=== PATIENT | male | born 1960 | race American Indian/Alaskan Native ===

== ENCOUNTER 2018-01-19 17:22 | Inpatient (IN) | payer OTHER ==
--- NOTE | 2018-01-19 18:20 | C.PDOC ---
History Of Present Illness 57 y/o male pt with hx of HTN presents to the ER requesting detox for heroin and cocain. Pt last intake was this morning at 7 am. Pt denies chest pain, SOB, hematuria, dysuria, melena, headache, abdominal pain, SI/HI, fever, chills and diarrhea. Time Seen by Provider: 01/19/18 17:51 Chief Complaint (Nursing): Substance Abuse History Per: Patient History/Exam Limitations: no limitations Onset/Duration Of Symptoms: Hrs Current Symptoms Are (Timing): Still Present Modifying Factor(s): Narcotics (heroin), Cocaine Past Medical History Reviewed: Historical Data, Nursing Documentation, Vital Signs Vital Signs: Last Vital Signs Temp 98.6 F 01/19/18 17:42 Pulse 65 01/19/18 17:42 Resp 18 01/19/18 17:42 BP 121/80 01/19/18 17:42 Pulse Ox 96 01/19/18 17:42 - Medical History PMH: HTN Family History: States: No Known Family Hx - Social History Hx Alcohol Use: Yes Hx Substance Use: Yes - Immunization History Hx Tetanus Toxoid Vaccination: No Hx Influenza Vaccination: No Hx Pneumococcal Vaccination: No Review Of Systems Constitutional: Positive for: Other (requestig detox for cocain and heroin). Negative for: Fever, Chills Cardiovascular: Negative for: Chest Pain Respiratory: Negative for: Shortness of Breath Gastrointestinal: Negative for: Abdominal Pain, Diarrhea, Melena, Hematemesis, Other (dysuria) Neurological: Negative for: Headache Psych: Negative for: Suicidal ideation, Other (homicidal ideation) Physical Exam - Physical Exam Appears: Non-toxic, No Acute Distress Skin: Warm, Dry Head: Normacephalic Eye(s): bilateral: Normal Inspection, PERRL, EOMI Ear(s): Bilateral: Normal Oral Mucosa: Moist Throat: Normal Neck: Normal ROM, Supple, Other (no meningeal signs) Chest: Symmetrical, No Deformity Cardiovascular: Rhythm Regular, No Friction Rub Respiratory: Normal Breath Sounds, No Rales, No Rhonchi, No Wheezing Gastrointestinal/Abdominal: Soft, No Tenderness Back: No CVA Tenderness Extremity: Normal ROM (x4) Extremity: Bilateral: Atraumatic Pulses: Left Dorsalis Pedis: Normal, Right Dorsalis Pedis: Normal Neurological/Psych: Oriented x3, Normal Speech, Normal Cognition, Normal Cranial Nerves, No Cerebellar Signs, Normal Motor, Normal Sensation, Normal Reflexes Gait: Steady Extremity: Right: No Drift, Left: No Drift, Upper: No Drift, Lower: No Drift ED Course And Treatment - Laboratory Results Result Diagrams: 01/19/18 18:45 01/19/18 18:45 ECG: Interpreted By Me, Viewed By Me ECG Rhythm: Sinus Bradycardia ECG Interpretation: No Acute Changes Interpretation Of ECG: no stemi Rate From EC O2 Sat by Pulse Oximetry: 96 (RA) Pulse Ox Interpretation: Normal Medical Decision Making Medical Decision Making: Impression: request detox for heroin and cocaine. No CP Fever or sob. No cough or congestion or rash. No track kauffman. No meningeal signs. No GI or complaints. Pending medical clearance. plans: -- EKG -- chem labs -- blood work -- UA Reassess: Pt is resting comfortably. Crisis will further evaluate pt and will be placed on a detox bed labs largely unremarkable medically clear to Dr. Cassidy per crisis pt in nad with vss. Disposition - Disposition Disposition Time: 20:06 Condition: GOOD - Clinical Impression Clinical Impression: Drug abuse - Scribe Statement The provider has reviewed the documentation as recorded by the Ene Blackmon Do Provider Attestation: All medical record entries made by the Scribe were at my direction and personally dictated by me. I have reviewed the chart and agree that the record accurately reflects my personal performance of the history, physical exam, medical decision making, and the department course for this patient. I have also personally directed, reviewed, and agree with the discharge instructions and disposition.
[2018-01-19 18:48] LABS: BASO # 0.1 K/uL (0.0-0.2); BASO % 1.3 % (0.0-2.0); EOS # 0.3 K/uL (0.0-0.7); EOS % 7.3 % (0.0-4.0); HEMOGLOBIN 13.3 g/dL (12.0-18.0); LYMPH # 1.7 K/uL (1.0-4.3); LYMPH % 39.3 % (20.0-40.0); MEAN CELL VOLUME 87.6 fL (80.0-94.0); MEAN CORPUSCULAR HEMOGLOBIN 29.5 pg (27.0-31.0); MEAN CORPUSCULAR HGB CONC 33.7 g/dL (33.0-37.0); MEAN PLATELET VOLUME 6.4 fL (7.2-11.7); MONO # 0.4 K/uL (0.0-0.8); NEUT % 44.1 % (50.0-75.0); NRBC % 0.1 % (0.0-2.0); RBC 4.53 Mil/uL (4.40-5.90); RED CELL DISTRIBUTION WIDTH 14.2 % (11.5-14.5); WHITE BLOOD COUNT 4.4 K/uL (4.8-10.8)
[2018-01-19 18:52] LABS: SQUAMOUS EPITHIAL < 1 /hpf (0-5); URINE BACTERIA OCC (<OCC); URINE BILIRUBIN NEGATIVE (NEGATIVE); URINE BLOOD NEGATIVE (NEGATIVE); URINE CLARITY Clear (Clear); URINE COLOR Yellow (YELLOW); URINE GLUCOSE (UA) NORMAL (Normal); URINE LEUKOCYTE ESTERASE TRACE Leu/uL (Negative); URINE PROTEIN NEGATIVE (NEGATIVE); URINE UROBILINOGEN NORMAL mg/dL (0.2-1.0)
[2018-01-19 19:00] LABS: ACETAMINOPHEN < 10.0 ug/mL (10.0-30.0); SALICYLATE < 1.0 mg/dL 1
[2018-01-19 19:02] LABS: ALB/GLOB RATIO 1.3 (1.0-2.1); ALBUMIN 4.2 g/dL (3.5-5.0); ALT/SGPT 31 U/L (21-72); AST/SGOT 23 U/L (17-59); BLOOD UREA NITROGEN 13 mg/dL (9-20); CALCIUM 9.3 mg/dl (8.6-10.4); GFR NON-AFRICAN AMERICAN > 60
[2018-01-19 19:05] LABS: BARBITURATES, UR NEGATIVE (NEGATIVE); BENZODIAZEPINES, UR NEGATIVE (NEGATIVE); PHENCYCLIDINE, UR NEGATIVE (NEGATIVE)
[2018-01-19 19:09] LABS: OPIATES, UR POSITIVE (NEGATIVE)
--- NOTE | 2018-01-19 20:18 | PCM.BM ---
<Zena Flores - Last Filed: 01/19/18 20:16> Treatment Plan Problems - Problems identified on initial assessmt potiential for opiate withdrawal Date Initiated: 01/19/18 Time Initiated: 20:17 Assessment reference: NA Status: Active Treatment assets and liabiliti Patient Assests: good support system, cognitively intact Patient Liabilities: substance abuse, medical problems - Milieu Protocol Maintain good personal hygiene: daily Encourage regular showers, daily Remind patient to perform daily oral care, daily Assist patient to perform ADL's Maintain personal safety: every shift Educate patient to report safety concerns to staff, every shift Monitor environment for contraband/sharps Medication safety: Monitor for expected outcome, potential side effects: every shift, Assess barriers to learning: every shift, Assess readiness for medication education: every shift <Thong Mercedes - Last Filed: 01/20/18 09:48> - Diagnosis (1) Opioid use disorder, severe, dependence Status: Acute Interventions: 01/20/18 09:48 * Assess 7x/week regarding severity of withdrawal * Educate regarding risks, benefits, side effects and alternatives of medications * Use Motivational Interviewing for abstinence * Use CBT for relapse prevention * Medication management for withdrawal symptoms * Encourage medication assisted treatment * (2) Cocaine use disorder, severe, dependence Status: Acute Interventions: 01/20/18 09:48 * Assess 7x/week regarding severity of withdrawal * Educate regarding risks, benefits, side effects and alternatives of medications * Use Motivational Interviewing for abstinence * Use CBT for relapse prevention * Medication management for withdrawal symptoms * Encourage medication assisted treatment * <Toña Gay - Last Filed: 01/20/18 14:42> Family Contact Family involvement: No known Family/SO - Goals for Treatment Patient goals for treatment: COMPLETE DETOX AND RESUME O/P @ AGENCY WITH MEDICATION MANAGEMENT. Discharge/Continuing Care - Education Needs Education Needs: Patient Medication, Patient Diagnosis/Disease Process, Patient Coping Skills, Patient Anger Management skills, Patient Placement options, Patient Community resources - Discharge Discharge Criteria: No longer exhibiting s/s of withdrawal, Reduction of target symptoms Discharge to:: Home - Treatment Team Participation Patient/Family/SO Statement: 01/20/18 14:41 "I NEED TO GO BACK TO MY PROGRAM AND STAY ON MY MEDS..." Discussed with Family/SO: No Was Patient/Family/SO present at Treatment Team Meeting: Yes
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
[2018-01-20] MEDS ORDERED: Aluminum Hydroxide/Magnesium Hydroxide Susp (30 mL) PO PRN (09:53)
--- NOTE | 2018-01-20 21:17 | CARD ---
APPROVED REPORT Date of service: 01/19/2018 EKG Measurement Heart [id number] <Conclusion> Sinus bradycardia Nonspecific T wave abnormality Abnormal ECG
--- NOTE | 2018-01-21 09:53 | PCM.PYCHPN ---
Psychiatric Progress Note - Psychiatric Progress Note Patient seen today, length of contact: 15 min Patient Chief Complaint: I am still withdrawing.' Problems Identified/Issues Discussed: Patient seen and evaluated, chart reviewed and discussed with the nurse. He reports improvement in his mood and withdrawal symptoms. He denies any AVH or any paranoia. Patient is compliant with medications and denies any side effects. Symptoms are improving but need more time to stabilize. Support and psychoeducation given. Medication Change: Yes Medical Record Reviewed: Yes Mental Status Examination - Cognitive Function Orientation: Person, Place, Situation, Time Memory: Intact Attention: WNL Concentration: Poor Association: WNL Fund of Knowledge: Poor - Mood Mood: Anxious, Other (irate at times) - Affect Affect: Constricted - Speech Speech: Soft - Formal Thought Process Formal Thought Process: No Impairment - Suicidal Ideation Suicidal Ideation: No - Homicidal Ideation Homicidal Ideation: No Goal/Treatment Plan - Goal/Treatment Plan Need for Continued Stay: Severe depression anxiety, Severe functional impairment Progress Toward Problem(s) and Goals/Treatment Plan: Opioid withdrawal Opioid use d/o, severe Cocaine use d/o, severe Tobacco use d/o moderate Bipolar 1 d/o - hypomanic Taper with methadone Gabapentin for augmentation if needed Seroquel 400 mg HS As needed medications All risks, benefits and alternatives of the meds discussed, and the pt agreed and understood. Attend groups and activities Supportive therapy and psychoeducation MA for abstinence CBT for relapse prevention Encourage MAT Refer to rehab or IOP, and self-help groups Teach healthy lifestyle methods, i.e. diet, exercise, meditation Smoking cessation with MA Nicotine patch if needed
--- NOTE | 2018-01-22 08:57 | RAD ---
Date of service: 01/22/2018 HISTORY: rehab placement COMPARISON: No prior. TECHNIQUE: Chest PA and lateral FINDINGS: LUNGS: No infiltrates bilaterally. Large air cyst right apex. Linear atelectasis or fibrosis in the mid to inferior right lung zone. PLEURA: No significant pleural effusion identified. No pneumothorax apparent. CARDIOVASCULAR: No aortic atherosclerotic calcification present. Normal cardiac size. No pulmonary vascular congestion. OSSEOUS STRUCTURES: No significant abnormalities. VISUALIZED UPPER ABDOMEN: Normal. OTHER FINDINGS: None. IMPRESSION: Large air cyst right apex. No infiltrate, pleural effusion or pneumothorax identified. No acute cardiovascular changes.
[2018-01-22 13:36] VITALS: RESP 18
--- NOTE | 2018-01-23 12:36 | PCM.PYCHPN ---
Psychiatric Progress Note - Psychiatric Progress Note Patient seen today, length of contact: 15 min Patient Chief Complaint: "I am getting better" Problems Identified/Issues Discussed: The pt is seen, chart reviewed, case discussed with staff. The pt is compliant with medications and reports no side-effects. Symptoms are improving but needs more time to stabilize. Pt attends groups and activities. Support given, psycho-education provided. After care discussed. Medication Change: Yes (detox changes daily) Medical Record Reviewed: Yes Mental Status Examination - Cognitive Function Orientation: Person, Place, Situation, Time Memory: Intact Attention: WNL Concentration: Poor Association: WNL Fund of Knowledge: Poor - Mood Mood: Anxious, Other (irate at times) - Affect Affect: Constricted - Speech Speech: Soft - Formal Thought Process Formal Thought Process: No Impairment - Suicidal Ideation Suicidal Ideation: No - Homicidal Ideation Homicidal Ideation: No Goal/Treatment Plan - Goal/Treatment Plan Need for Continued Stay: Severe depression anxiety, Severe functional impairment Progress Toward Problem(s) and Goals/Treatment Plan: Taper with methadone Gabapentin for augmentation if needed As needed medications All risks, benefits and alternatives of the meds discussed, and the pt agreed and understood. Attend groups and activities Supportive therapy and psychoeducation NM for abstinence CBT for relapse prevention Encourage MAT Refer to rehab or IOP, and self-help groups Teach healthy lifestyle methods, i.e. diet, exercise, meditation Smoking cessation with NM Nicotine patch if needed
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
[2018-01-24 09:32] VITALS: BP 132/71; PULSE 67; TEMP 98.3; O2SAT 97
== END 2018-01-24 10:30 | disposition home or self-care (01) | DRG 772 ==
LOC: C.ER 17:22 → C.7D 20:06
PROVIDERS: ADMIT Psychiatry & Neurology Psychiatry; ATTEND Psychiatry & Neurology Psychiatry
PROC: HZ2ZZZZ Detoxification Services for Substance Abuse Treatment (ICD-10-PCS; principal; 2018-01-19)
PROC: HZ46ZZZ Group Counseling for Substance Abuse Treatment, Psychoeducation (ICD-10-PCS; 2018-01-19)
PROC: GZ3ZZZZ Medication Management (ICD-10-PCS; 2018-01-19)
PROC: HZ81ZZZ Medication Management for Substance Abuse Treatment, Methadone Maintenance (ICD-10-PCS; 2018-01-19)
PROC: HZ80ZZZ Medication Management for Substance Abuse Treatment, Nicotine Replacement (ICD-10-PCS; 2018-01-19)
PROC: HZ59ZZZ Individual Psychotherapy for Substance Abuse Treatment, Supportive (ICD-10-PCS; 2018-01-19)
DX: F11.23 Opioid dependence with withdrawal (principal); F14.20 Cocaine dependence, uncomplicated; F31.0 Bipolar disorder, current episode hypomanic; F17.210 Nicotine dependence, cigarettes, uncomplicated; I10 Essential (primary) hypertension

== ENCOUNTER 2018-06-12 16:26 | Inpatient (IN) | payer OTHER ==
[2018-06-12 16:44] VITALS: BMI 25.5
--- NOTE | 2018-06-12 17:24 | C.PDOC ---
History Of Present Illness 57 year old male presents to ED requesting pre-screen for heroin detox. Patient has no physical complaints. <Todd Segura - Last Filed: 06/12/18 19:13> History Per: Patient History/Exam Limitations: no limitations Onset/Duration Of Symptoms: Other (pre-screen ) Suicide/Self Injury Attempted (Context): None Modifying Factor(s): Other (heroin) <Todd Segura - Last Filed: 06/12/18 19:13> <Vineet Velasquez - Last Filed: 06/12/18 19:48> Time Seen by Provider: 06/12/18 17:21 Chief Complaint (Nursing): Substance Abuse Past Medical History Reviewed: Historical Data, Nursing Documentation, Vital Signs Vital Signs: Last Vital Signs Temp 97.3 F L 06/12/18 16:40 Pulse 77 06/12/18 16:40 Resp 18 06/12/18 16:40 BP 135/82 06/12/18 16:40 Pulse Ox 99 06/12/18 16:40 - Medical History PMH: HTN Denies: Diabetes, Hepatitis, HIV, Seizures, Sexually Transmitted Disease Surgical History: No Surg Hx - [facility] DETOXIFICATION SERVICES FOR SUBSTANCE ABUSE TREATMENT (01/19/18) GROUP ART GILDER FOR SUBSTANCE ABUSE TREATMENT, PSYCHOEDUCATION (01/19/18) INDIV PSYCHOTHERAPY FOR SUBSTANCE ABUSE TREATMENT, SUPPORT (01/19/18) MEDICATION MANAGEMENT (01/19/18) MEDS MGMT FOR SUBSTANCE ABUSE TREATMENT, METHADONE MAINT (01/19/18) MEDS MGMT FOR SUBSTANCE ABUSE TREATMENT, NICOTINE REPLACE (01/19/18) Family History: States: Unknown Family Hx - Social History Hx Alcohol Use: Yes Hx Substance Use: Yes - Immunization History Hx Tetanus Toxoid Vaccination: No Hx Influenza Vaccination: No Hx Pneumococcal Vaccination: No <Todd Segura - Last Filed: 06/12/18 19:13> Vital Signs: Last Vital Signs Temp 97.3 F L 06/12/18 16:40 Pulse 77 06/12/18 16:40 Resp 18 06/12/18 16:40 BP 135/82 06/12/18 16:40 Pulse Ox 99 06/12/18 19:19 - [facility] DETOXIFICATION SERVICES FOR SUBSTANCE ABUSE TREATMENT (01/19/18) GROUP ART GILDER FOR SUBSTANCE ABUSE TREATMENT, PSYCHOEDUCATION (01/19/18) INDIV PSYCHOTHERAPY FOR SUBSTANCE ABUSE TREATMENT, SUPPORT (01/19/18) MEDICATION MANAGEMENT (01/19/18) MEDS MGMT FOR SUBSTANCE ABUSE TREATMENT, METHADONE MAINT (01/19/18) MEDS MGMT FOR SUBSTANCE ABUSE TREATMENT, NICOTINE REPLACE (01/19/18) <Vineet Velasquez - Last Filed: 06/12/18 19:48> Review Of Systems Constitutional: Negative for: Fever, Chills, Weakness Cardiovascular: Negative for: Chest Pain Gastrointestinal: Negative for: Nausea, Vomiting, Abdominal Pain Neurological: Negative for: Weakness, Numbness, Dizziness <Todd Segura - Last Filed: 06/12/18 19:13> Physical Exam - Physical Exam Appears: Well, Non-toxic, No Acute Distress Skin: Normal Color, Warm, Dry Head: Atraumatic, Normacephalic Neck: Normal ROM, Supple Chest: Symmetrical, No Deformity Cardiovascular: Rhythm Regular, No Murmur Respiratory: No Accessory Muscle Use Gastrointestinal/Abdominal: Soft, No Tenderness Extremity: Bilateral: Atraumatic, Normal Color And Temperature, Normal ROM Neurological/Psych: Oriented x3, Normal Speech, Normal Cognition <Todd Segura - Last Filed: 06/12/18 19:13> ED Course And Treatment - Laboratory Results Result Diagrams: 06/12/18 17:49 06/12/18 17:49 Lab Interpretation: Abnormal (tox + opiates) O2 Sat by Pulse Oximetry: 99 (in RA) Pulse Ox Interpretation: Normal Progress Note: Labs ordered with UA and drug screen for patient. Reevaluation Time: 19:00 Reassessment Condition: Unchanged <Todd Segura - Last Filed: 06/12/18 19:13> - Laboratory Results Result Diagrams: 06/12/18 17:49 06/12/18 17:49 Lab Results: Total Bilirubin 0.2 mg/dL (0.2-1.3) 06/12/18 17:49 AST 21 U/L (17-59) 06/12/18 17:49 ALT 18 U/L (21-72) L D 06/12/18 17:49 Alkaline Phosphatase 67 U/L (38-126) 06/12/18 17:49 Total Protein 7.0 g/dL (6.3-8.3) 06/12/18 17:49 Albumin 4.1 g/dL (3.5-5.0) 06/12/18 17:49 Globulin 2.9 gm/dL (2.2-3.9) 06/12/18 17:49 Albumin/Globulin Ratio 1.4 (1.0-2.1) 06/12/18 17:49 Urine Color Yellow (YELLOW) 06/12/18 17:49 Urine Clarity Hazy (Clear) 06/12/18 17:49 Urine pH 5.0 (5.0-8.0) 06/12/18 17:49 Ur Specific [place] 1.016 (1.003-1.030) 06/12/18 17:49 Urine Protein Negative mg/dL (NEGATIVE) 06/12/18 17:49 Urine Glucose (UA) Normal mg/dL (Normal) 06/12/18 17:49 Urine Ketones Negative mg/dL (NEGATIVE) 06/12/18 17:49 Urine Blood 1+ (NEGATIVE) H 06/12/18 17:49 Urine Nitrate Negative (NEGATIVE) 06/12/18 17:49 Urine Bilirubin Negative (NEGATIVE) 06/12/18 17:49 Urine Urobilinogen Normal mg/dL (0.2-1.0) 06/12/18 17:49 Ur Leukocyte Esterase Trace Anastacio/uL (Negative) 06/12/18 17:49 Urine WBC (Auto) 6 /hpf (0-5) H 06/12/18 17:49 Urine RBC (Auto) 1 /hpf (0-3) 06/12/18 17:49 Ur Squamous Epith Cells < 1 /hpf (0-5) 06/12/18 17:49 Urine Bacteria Occ (<OCC) H 06/12/18 17:49 Hyaline Casts 3-5 /lpf (0-2) H 06/12/18 17:49 <Vineet Velasquez - Last Filed: 06/12/18 19:48> Medical Decision Making Medical Decision Makin: medically cleared for Detox pending Tox Adm signed over to Overnight MD in stable condition <Todd Segura - Last Filed: 06/12/18 19:13> Medical Decision Makin pt in NAD medically cleared by previous team no urinary complaints per pt asymptomatic uti accepted by Crisis team to Dr. Flores service for opiate detox pt agreeable to plan <Vineet Velasquez - Last Filed: 06/12/18 19:48> Disposition - Disposition Disposition Time: 19:00 <Todd Segura - Last Filed: 06/12/18 19:13> <Vineet Velasquez - Last Filed: 06/12/18 19:48> - Disposition Condition: GOOD Forms: [facility] ([place]) - Clinical Impression Clinical Impression: Opiate abuse, continuous - Scribe Statement The provider has reviewed the documentation as recorded by the Scribe (Cindy Del Rosario) All medical record entries made by the Scribe were at my direction and personally dictated by me. I have reviewed the chart and agree that the record accurately reflects my personal performance of the history, physical exam, medical decision making, and the department course for this patient. I have also personally directed, reviewed, and agree with the discharge instructions and disposition. <Todd Segura - Last Filed: 06/12/18 19:13> Physician Patient Turnover Patient Signed Over To: Vineet Velasquez Handoff Comments: pending Detox for opiate abuse <Todd Segura - Last Filed: 06/12/18 19:13>
[2018-06-12 17:55] LABS: BASO # 0.1 K/uL (0.0-0.2); BASO % 1.1 % (0.0-2.0); EOS # 0.2 K/uL (0.0-0.7); EOS % 3.6 % (0.0-4.0); HEMOGLOBIN 12.6 g/dL (12.0-18.0); LYMPH # 1.5 K/uL (1.0-4.3); LYMPH % 28.8 % (20.0-40.0); MEAN CELL VOLUME 86.2 fL (80.0-94.0); MEAN CORPUSCULAR HEMOGLOBIN 28.9 pg (27.0-31.0); MEAN CORPUSCULAR HGB CONC 33.6 g/dL (33.0-37.0); MEAN PLATELET VOLUME 6.4 fL (7.2-11.7); MONO # 0.4 K/uL (0.0-0.8); MONO % 7.3 % (0.0-10.0); NEUT % 59.2 % (50.0-75.0); NRBC % 0.1 % (0.0-2.0); RBC 4.34 Mil/uL (4.40-5.90); RED CELL DISTRIBUTION WIDTH 14.8 % (11.5-14.5); WHITE BLOOD COUNT 5.1 K/uL (4.8-10.8)
[2018-06-12 18:21] LABS: ALB/GLOB RATIO 1.4 (1.0-2.1); ALBUMIN 4.1 g/dL (3.5-5.0); ALT/SGPT 18 U/L (21-72); AST/SGOT 21 U/L (17-59); BLOOD UREA NITROGEN 16 mg/dL (9-20); CALCIUM 9.4 mg/dl (8.6-10.4); GFR NON-AFRICAN AMERICAN 52; SQUAMOUS EPITHIAL < 1 /hpf (0-5); URINE BACTERIA OCC (<OCC); URINE BILIRUBIN NEGATIVE (NEGATIVE); URINE BLOOD 1+ (NEGATIVE); URINE CLARITY Hazy (Clear); URINE COLOR Yellow (YELLOW); URINE GLUCOSE (UA) NORMAL (Normal); URINE LEUKOCYTE ESTERASE TRACE Leu/uL (Negative); URINE PROTEIN NEGATIVE (NEGATIVE); URINE UROBILINOGEN NORMAL mg/dL (0.2-1.0)
[2018-06-12 18:26] LABS: BARBITURATES, UR NEGATIVE (NEGATIVE); BENZODIAZEPINES, UR NEGATIVE (NEGATIVE); PHENCYCLIDINE, UR NEGATIVE (NEGATIVE)
[2018-06-12 18:28] LABS: OPIATES, UR POSITIVE (NEGATIVE)
[2018-06-12] MEDS ORDERED: Aluminum Hydroxide/Magnesium Hydroxide Susp (30 mL) PO PRN (22:45)
--- NOTE | 2018-06-12 22:45 | PCM.BM ---
<Lida Hernandes M - Last Filed: 06/12/18 22:44> Treatment Plan Problems - Problems identified on initial assessmt Low Motivation to Change Date Initiated: 06/12/18 Time Initiated: 22:45 Assessment reference: NA Status: Active Treatment assets and liabiliti Patient Assests: good support system, cognitively intact Patient Liabilities: substance abuse - Milieu Protocol Maintain good personal hygiene: daily Encourage regular showers, daily Remind patient to perform daily oral care, daily Assist patient to perform ADL's Conduct patient checks and document Observation sheet: Q15 minutes Maintain personal safety: every shift Educate patient to report safety concerns to staff, every shift Monitor environment for contraband/sharps Medication safety: Monitor for expected outcome, potential side effects: every shift, Assess barriers to learning: every shift, Assess readiness for medication education: every shift <Toña Gay - Last Filed: 06/14/18 07:50> Family Contact Family involvement: No known Family/SO - Goals for Treatment Patient goals for treatment: Complete detox and resume partial care program at [facility]. Discharge/Continuing Care - Education Needs Education Needs: Patient Medication, Patient Diagnosis/Disease Process, Patient Coping Skills, Patient Anger Management skills, Patient Placement options, Patient Community resources - Discharge Discharge Criteria: No longer exhibiting s/s of withdrawal, Reduction of target symptoms Discharge to:: Half-Way - Treatment Team Participation Discussed with Family/SO: No Was Patient/Family/SO present at Treatment Team Meeting: Yes
[2018-06-13] MEDS: Multiple Vitamins Tab PO SCH (11:39)
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
[2018-06-14] MEDS: Multiple Vitamins Tab PO SCH (09:37)
--- NOTE | 2018-06-14 10:12 | PCM.PYCHPN ---
Psychiatric Progress Note - Psychiatric Progress Note Patient Chief Complaint: "Im not feeling like myself" Problems Identified/Issues Discussed: The pt is seen, chart reviewed, case discussed with staff. Patient is having seasonal allergy symptoms and requesting medication for allergies Patient complains of constipation x 7 days, and requests medication for it. The pt is compliant with medications and reports no side-effects. Symptoms are improving but needs more time to stabilize. Pt attends groups and activities. Support given, psycho-education provided. After care discussed. Mental Status Examination - Cognitive Function Orientation: Person, Place, Situation, Time Memory: Intact Attention: WNL Concentration: WNL Association: WNL Fund of Knowledge: WNL - Mood Mood: Anxious - Affect Affect: Broad - Speech Speech: Loud - Formal Thought Process Formal Thought Process: No Impairment - Suicidal Ideation Suicidal Ideation: No - Homicidal Ideation Homicidal Ideation: No Goal/Treatment Plan - Goal/Treatment Plan Need for Continued Stay: Discharge may exacerbated symptoms, Severe functional impairment Progress Toward Problem(s) and Goals/Treatment Plan: continue methadone taper As needed medications All risks, benefits and alternatives of the meds discussed, and the pt agreed and understood. Attend groups and activities Supportive therapy and psychoeducation [place] for abstinence CBT for relapse prevention Encourage MAT Refer to rehab or IOP, and self-help groups Teach healthy lifestyle methods, i.e. diet, exercise, meditation Smoking cessation with [place] Nicotine patch if needed 34 min - Smoking Cessation Smoking Cessation Initiated: Yes
[2018-06-15] MEDS: Multiple Vitamins Tab PO SCH (10:05)
--- NOTE | 2018-06-15 12:42 | PCM.PYCHPN ---
Psychiatric Progress Note - Psychiatric Progress Note Patient seen today, length of contact: 15 min Patient Chief Complaint: "Im feeling hot and cold" Problems Identified/Issues Discussed: The pt is seen, chart reviewed, case discussed with staff. Patient states his allergy symptoms are improving Patient states feeling hot flashes, night sweats and feeling cold at times. Reports one episode of vomit yesterday. no nausea/vomiting this morning. The pt is compliant with medications and reports no side-effects. Symptoms are improving but needs more time to stabilize. Pt attends groups and activities. Support given, psycho-education provided. After care discussed. Mental Status Examination - Cognitive Function Orientation: Person, Place, Situation, Time Memory: Intact Attention: WNL Concentration: WNL Association: WNL Fund of Knowledge: WNL - Mood Mood: Anxious - Affect Affect: Broad - Speech Speech: Appropriate - Formal Thought Process Formal Thought Process: No Impairment - Suicidal Ideation Suicidal Ideation: No - Homicidal Ideation Homicidal Ideation: No Goal/Treatment Plan - Goal/Treatment Plan Need for Continued Stay: Discharge may exacerbated symptoms, Severe functional impairment Progress Toward Problem(s) and Goals/Treatment Plan: continue methadone taper As needed medications All risks, benefits and alternatives of the meds discussed, and the pt agreed and understood. Attend groups and activities Supportive therapy and psychoeducation [place] for abstinence CBT for relapse prevention Encourage MAT Refer to rehab or IOP, and self-help groups Teach healthy lifestyle methods, i.e. diet, exercise, meditation Smoking cessation with [place] Nicotine patch if needed 34 min
[2018-06-16] MEDS: Multiple Vitamins Tab PO SCH (10:19)
--- NOTE | 2018-06-16 13:46 | PCM.PYCHPN ---
Psychiatric Progress Note - Psychiatric Progress Note Patient seen today, length of contact: 15 min Patient Chief Complaint: "Not well" Problems Identified/Issues Discussed: The pt is seen again, chart reviewed, and case is discussed with the team. The pt denies any side-effects from meds. Attends activities and groups, brief individual therapy provided Not ready for discharge due to ongoing symptoms and high relapse risk. After care discussed again. Medication Change: Yes Medical Record Reviewed: Yes Mental Status Examination - Cognitive Function Orientation: Person, Place, Situation, Time Memory: Intact Attention: WNL Concentration: WNL Association: WNL Fund of Knowledge: WNL - Mood Mood: Anxious - Affect Affect: Broad - Speech Speech: Appropriate - Formal Thought Process Formal Thought Process: No Impairment - Suicidal Ideation Suicidal Ideation: No - Homicidal Ideation Homicidal Ideation: No Goal/Treatment Plan - Goal/Treatment Plan Need for Continued Stay: Discharge may exacerbated symptoms, Severe functional impairment Progress Toward Problem(s) and Goals/Treatment Plan: Continue medications Support and psychoeducation daily Attend groups and activities daily Individual therapy After care planning by ISAURO and the team
[2018-06-17] MEDS: Multiple Vitamins Tab PO SCH (10:11)
[2018-06-17 10:59] VITALS: BP 128/77; PULSE 78; RESP 18; TEMP 98; O2SAT 98
== END 2018-06-17 14:11 | disposition home or self-care (01) | DRG 744 ==
LOC: C.ER 16:26 → C.7D 19:48
PROC: HZ2ZZZZ Detoxification Services for Substance Abuse Treatment (ICD-10-PCS; principal; 2018-06-12)
PROC: HZ59ZZZ Individual Psychotherapy for Substance Abuse Treatment, Supportive (ICD-10-PCS; 2018-06-12)
PROC: GZ3ZZZZ Medication Management (ICD-10-PCS; 2018-06-12)
PROC: HZ46ZZZ Group Counseling for Substance Abuse Treatment, Psychoeducation (ICD-10-PCS; 2018-06-12)
PROC: HZ81ZZZ Medication Management for Substance Abuse Treatment, Methadone Maintenance (ICD-10-PCS; 2018-06-12)
PROC: HZ80ZZZ Medication Management for Substance Abuse Treatment, Nicotine Replacement (ICD-10-PCS; 2018-06-12)
DX: F11.23 Opioid dependence with withdrawal (principal); F14.90 Cocaine use, unspecified, uncomplicated; F31.0 Bipolar disorder, current episode hypomanic; F17.210 Nicotine dependence, cigarettes, uncomplicated; N39.0 Urinary tract infection, site not specified; I10 Essential (primary) hypertension; J30.2 Other seasonal allergic rhinitis; K59.00 Constipation, unspecified; R45.851 Suicidal ideations